=== PATIENT | male | born 1940 | race Caucasian/White ===

== ENCOUNTER → 2016-08-06 | Outpatient (REF) | payer MEDICARE ==
[~2016-08-06] MED LIST: AC325T PO; ALBU2.5V12 INH; ALBU6.7H IH; ASP81CT PO; ASPI-504 PO; CALC300T10 PO; CEFD300C PO; CLOP75TA28 PO; DNPZ10T PO; DOXY100T41 PO; FERR325T36 PO; GFN600TCR PO; IPRA3AMP11 INH; MAGN400O7 PO; OMEP20CA6 PO; POTA99TA16 PO; PRD20T PO; SMV20T PO
== END ==
LOC: LAB 15:36
PROVIDERS: ATTEND Family Medicine
DX: Z01.818 Encounter for other preprocedural examination (principal)
CPT/HCPCS: 82565; 84520

== ENCOUNTER → 2016-08-08 | Outpatient (CLI) | payer MEDICARE ==
[~2016-08-08] MED LIST changes: +ALBU0.63 IH; +ASPI-586 PO; +CALC650T14 PO; +CLPD75T PO; +GUAI600T45 PO
--- NOTE | 2016-08-08 09:36 | Diagnostic Imaging Report ---
PROCEDURE: MRI lumbar spine with and without contrast. TECHNIQUE: Multiplanar, multisequence MRI of the lumbar spine was performed with and without contrast. INDICATION: Low back pain. Comparison with previous CT scan lumbar spine on 10/30/2007. FINDINGS: Good alignment of vertebral bodies. Body height is well maintained. Marrow signal is normal throughout. Conus medullaris and cauda equina appear normal. There is desiccation noted throughout the lumbar disc. L1-L2: There is facet and ligamentous hypertrophy posteriorly. Loss of disc space height with mild hypertrophic lipping of the endplate is causing mild trefoil stenosis with no significant encroachment noted upon the lateral recesses. L2-L3: There is loss of disc space height. There is a central disc herniation. There is considerable facet and ligamentous hypertrophy which is causing trefoil stenosis with moderate severe encroachment upon the lateral recesses. Minimal AP central canal dimension measures 6 mm. L3-L4: Disc space height is well preserved. No evidence of disc herniation. There is marked posterior facet and ligamentous hypertrophy which is causing severe trefoil stenosis with encroachment upon the lateral recesses. Mild encroachment upon the neural foramen. The AP central canal dimension is 5 mm. L4-L5: There is desiccation of the disc. There is a disc protrusion extending into the right neural foramen. Facet and ligamentous hypertrophy causing trefoil stenosis with moderate severe encroachment on the right and moderate encroachment on the left. L5-S1: Disc space height is well preserved. No evidence of disc herniation. Posterior facet and ligamentous hypertrophy causing mild encroachment upon the lateral recesses. No central canal stenosis. The sacral ala appear normal with no evidence of stress fractures. The surrounding soft tissues appear normal. 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 Dictated by: Dictated on workstation # [id number]
== END ==
LOC: RAD 07:43
PROVIDERS: ATTEND Family Medicine
DX: M54.16 Radiculopathy, lumbar region (principal); M48.06 Spinal stenosis, lumbar region
CPT/HCPCS: 72158; A9579

== ENCOUNTER → 2016-08-19 | Outpatient (CLI) | payer MEDICARE ==
[~2016-08-19] MED LIST changes: +DOCU100C8 PO; +FURO40TA4 PO; +HYDR-3702 PO; +OMEP20TA PO; +POLY17PO2 PO
--- NOTE | 2016-08-19 14:52 | Diagnostic Imaging Report ---
INDICATION: Chronic pulmonary edema. COMPARISON: 08/12/2016. CT chest of 12/26/2015. FINDINGS: The bibasilar heterogeneous opacities have improved. There are residual linear foci of atelectasis in the left lung base. A dominant left-sided pulmonary nodule is again noted measuring up to 1.5 cm. The patient's previously noted mediastinal and hilar lymphadenopathy is better seen on the prior CT. No pleural effusion or pneumothorax. Stable cardiomediastinal silhouette. IMPRESSION: 1. Improving basilar heterogeneous opacities with a few foci of residual atelectasis. 2. The pulmonary nodule in the left lower lobe has not significantly changed. Please see the CT chest report from 12/26/2015 for further details. Dictated by: Dictated on workstation # [id number]
== END ==
LOC: RAD 10:12
PROVIDERS: ATTEND Internal Medicine
DX: J81.1 Chronic pulmonary edema (principal)
CPT/HCPCS: 71020

== ENCOUNTER → 2016-09-16 | Outpatient (REF) | payer MEDICARE ==
[2016-09-16 14:27] LABS: MEAN CORPUSCULAR HGB CONC 32.3 g/dL (31.0-37.0); MEAN CORPUSCULAR VOLUME 83 FL (80-100); MEAN PLATELET VOLUME 10.6 FL (6.0-9.5); PLATELET COUNT 164 10^3uL (150-450)
[2016-09-16 14:28] LABS: BAND NEUTROPHILS % 0 % (0-6); EOSINOPHILS % 0 % (0-4); LYMPHOCYTES # 1.4 #; MEAN CORPUSCULAR HEMOGLOBIN 26.7 PG (26.0-34.0); MONOCYTES # 0.3 #; MONOCYTES % 5 % (3-11); RBC MORPH NORMAL (NORMAL); SEGMENTED NEUTROPHILS % 74 % (51-67); TOTAL CELLS COUNTED 100
[2016-09-16 21:26] LABS: IRON 57 ug/dL (65-175); UNBOUND IRON CONTENT 256 ug/dl (126-382)
== END ==
LOC: LAB 14:03
PROVIDERS: ATTEND Internal Medicine Hematology & Oncology
DX: D75.1 Secondary polycythemia (principal); D45 Polycythemia vera
CPT/HCPCS: 82728; 83540; 83550; 85007; 85027